=== PATIENT | female | born 1985 | race Caucasian/White ===

== ENCOUNTER 2016-08-03 19:32 | Emergency (ER) | payer MEDICAID, OTHER ==
[2016-08-03] MEDS ORDERED: Rocephin 1000 MG INJ IM ONE (20:32)
[2016-08-03] MEDS ORDERED: Zithromax 250 MG TABLET PO ONE (20:32)
[2016-08-03] MEDS ORDERED: TORAdol 30 mg Injection IM ONE (20:32)
[2016-08-03] MEDS ORDERED: PROVENTIL 2.5 MG/3 ML NEB IH ONE ×2 (20:33→20:42)
[2016-08-03] MEDS ORDERED: Robitussin AC Syrup Unit Dose Cup PO PRN (20:33)
[2016-08-03] MEDS ORDERED: TORAdol 30 mg Injection ONE (20:40)
--- NOTE | 2016-08-03 20:40 | ERPHSYRPT ---
- History of Present Illness Time Seen by Provider: 08/03/16 20:28 Source: patient Exam Limitations: no limitations Physician History: FOR THE PAST 1.5 WEEKS PT HAS HAD A COUGH PRODUCTIVE OF A SMALL AMOUNT OF GREEN- YELLOW PHLEGM; FOR THE PAST WEEK DIAPHORESIS AND CHILLS. PT DENIES CHEST PAIN, FEVER, VOMITING. Allergies/Adverse Reactions: venom-honey bee [bee venom (honey bee)] Adverse Reaction (Verified 06/08/13 21: 47) Hx Tetanus, Diphtheria Vaccination/Date Given: Yes Hx Influenza Vaccination/Date Given: No Hx Pneumococcal Vaccination/Date Given: No - Review of Systems Constitutional: Chills, No Fever Respiratory: Cough Cardiac: No Chest Pain Abdominal/Gastrointestinal: No Vomiting Endocrine: Excessive Sweating All Other Systems: Reviewed and Negative - Past Medical History Pertinent Past Medical History: Yes Neurological History: No Pertinent History ENT History: No Pertinent History Cardiac History: No Pertinent History Respiratory History: No Pertinent History Endocrine Medical History: No Pertinent History Musculoskeletal History: No Pertinent History GI Medical History: Crohns Disease History: No Pertinent History Psycho-Social History: No Pertinent History Female Reproductive Disorders: No Pertinent History - Past Surgical History Past Surgical History: Yes Neuro Surgical History: No Pertinent History Cardiac: No Pertinent History Respiratory: No Pertinent History Gastrointestinal: Colon Resection Musculoskeletal: No Pertinent History Female Surgical History: No Pertinent History, Tubal Ligation Other Surgical History: Part of intestine removed 2008 - Social History Smoking Status: Never smoker Exposure to second hand smoke: Yes Drug Use: none Patient Lives Alone: No - Female History Hx Now: No - Physical Exam General Appearance: alert Eye Exam: PERRL/EOMI Ears, Nose, Throat Exam: TMs normal, pharynx normal, moist mucous membranes Neck Exam: normal inspection Respiratory Exam: airway intact, wheezing (MILD EXPIRATORY WHEEZING BILATERALLY) , No crackles/rales Cardiovascular Exam: normal heart sounds Gastrointestinal/Abdomen Exam: soft, normal bowel sounds Back Exam: normal range of motion Extremity Exam: No pedal edema Neurologic Exam: alert, cooperative Skin Exam: dry - Course Nursing assessment & vital signs reviewed: Yes Ordered Tests: Active Orders 24 hr Category Date Time Status Respiratory Nebulizer STAT RT 08/03/16 20:33 Active Medication Summary Generic Name Dose Route Start Last Admin Trade Name Freq PRN Reason Stop Dose Admin Guaifenesin/Codeine Phosphate 10 ml 08/03/16 20:33 Robitussin Ac Syrup Unit Dose Cup PO 09/02/16 20:32 QIDP PRN COUGH Discontinued Medications Generic Name Dose Route Start Last Admin Trade Name Avinash PRN Reason Stop Dose Admin Albuterol Sulfate 2.5 mg 08/03/16 20:33 Proventil 2.5 Mg/3 Ml Neb IH 08/03/16 20:34 STAT ONE Azithromycin 500 mg 08/03/16 20:32 Zithromax 250 Mg Tablet PO 08/03/16 20:33 STAT ONE Ceftriaxone Sodium 1,000 mg 08/03/16 20:32 Rocephin 1000 Mg Inj IM 08/03/16 20:33 STAT ONE Ketorolac Tromethamine 60 mg 08/03/16 20:32 Toradol 30 Mg Injection IM 08/03/16 20:33 STAT ONE - Departure Time of Disposition: 20:40 Departure Disposition: Home Clinical Impression: BRONCHITIS Condition: Fair Critical Care Time: No Instructions: Bronchitis Additional Instructions: FOLLOW UP WITH PRIVATE DOCTOR TOMORROW. Prescriptions: Guaifenesin/Codeine Phosphate [Robitussin AC Syrup] 10 ml PO Q4HPRN PRN #120 ml PRN Reason: Cough Naproxen 375 mg [Naprosyn 375 mg] 375 mg PO [id number] PRN #20 tablet PRN Reason: Pain Azithromycin 250 mg [Zithromax 250 MG TABLET] 250 mg PO ZPACK #6 tablet
[2016-08-03] MEDS ORDERED: XYLOCAINE 1% HCL 20 ML MDV ONE (20:41)
[2016-08-03] MEDS ORDERED: Robitussin AC Syrup Unit Dose Cup ONE (20:41)
[2016-08-03] MEDS ORDERED: Zithromax 250 MG TABLET ONE (20:41)
[2016-08-03] MEDS ORDERED: Rocephin 1000 MG INJ ONE (20:41)
[2016-08-03 20:48] VITALS: PULSE 84
[2016-08-03 20:52] VITALS: O2SAT 97
[2016-08-03 21:24] VITALS: BP 128/76
== END 2016-08-03 21:24 | disposition home or self-care (01) ==
LOC: ED 19:32
DX: J40 Bronchitis, not specified as acute or chronic (principal)
CPT/HCPCS: 94640; 96372; 99283; 99284; J0696; J1885

== ENCOUNTER 2017-03-04 20:04 | Emergency (ER) | payer OTHER ==
[2017-03-04] MEDS ORDERED: TYLENOL 325 MG PO ONE (20:18)
[2017-03-04] MEDS ORDERED: KEFLEX 500 MG PO ONE (20:18)
[2017-03-04] MEDS ORDERED: Adacel Vial IM ONE ×2 (20:19→20:37)
[2017-03-04] MEDS ORDERED: BACIGUENT PACKET TP ONE (20:19)
[2017-03-04 20:28] VITALS: O2SAT 100
--- NOTE | 2017-03-04 20:30 | ERPHSYRPT ---
- History of Present Illness Time Seen by Provider: 03/04/17 20:14 Source: patient Physician History: CC: thumb injury hx: 31 y/o healthy patient of Dr Bonner smashed right thumb 2 weeks ago. The nail fell off. Now it is more sore and has some redness extending proximally so she came to ER. Unsure last tetanus vaccine. Healthy. Had prior BTL. Has been soaking in perozide. 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 Extremities Pain Location: thumb: right Allergies/Adverse Reactions: venom-honey bee [bee venom (honey bee)] Adverse Reaction (Verified 08/03/16 20: 52) Hx Tetanus, Diphtheria Vaccination/Date Given: Yes Hx Influenza Vaccination/Date Given: No Hx Pneumococcal Vaccination/Date Given: No - Review of Systems Constitutional: No Fever, No Chills Musculoskeletal: Injury (right thumb) Neurological: No Focal Weakness, No Parasthesia - Past Medical History Pertinent Past Medical History: Yes Neurological History: No Pertinent History ENT History: No Pertinent History Cardiac History: No Pertinent History Respiratory History: No Pertinent History Endocrine Medical History: No Pertinent History Musculoskeletal History: No Pertinent History GI Medical History: Crohns Disease History: No Pertinent History Psycho-Social History: No Pertinent History Female Reproductive Disorders: No Pertinent History - Past Surgical History Past Surgical History: Yes Neuro Surgical History: No Pertinent History Cardiac: No Pertinent History Respiratory: No Pertinent History Gastrointestinal: Colon Resection Musculoskeletal: No Pertinent History Female Surgical History: No Pertinent History, Tubal Ligation Other Surgical History: Part of intestine removed 2008 - Social History Smoking Status: Never smoker Exposure to second hand smoke: Yes Drug Use: none Patient Lives Alone: No - Female History Hx Now: No - Physical Exam General Appearance: alert Eyes, Ears, Nose, Throat Exam: moist mucous membranes Neck Exam: supple Cardiovascular/Respiratory Exam: regular rate/rhythm Elbow/Forearm Exam: normal inspection, non-tender Wrist Exam: normal inspection, non-tender Hand Exam: nail injury (fell off, some redness and swelling at the proximal nail fold. Minimal thumb redness and swelling. Good cap refill. ) Neuro/Tendon Exam: normal sensation, normal motor functions Mental Status Exam: alert, oriented x 3, cooperative Skin Exam: warm, dry - Course Nursing assessment & vital signs reviewed: Yes - Radiology Exams right thumb/hand X-ray Interpretation: Reviewed by me, No Fracture Ordered Tests: Active Orders 24 hr Category Date Time Status Wound Care STAT Care 03/04/17 20:19 Active HAND (MINIMUM 3 VIEWS) Stat Exams 03/04/17 20:18 Ordered Medication Summary Discontinued Medications Generic Name Dose Route Start Last Admin Trade Name Freq PRN Reason Stop Dose Admin Acetaminophen 650 mg 03/04/17 20:18 Tylenol 325 Mg PO 03/04/17 20:19 STAT ONE Bacitracin 0.9 gm 03/04/17 20:19 Baciguent Packet TP 03/04/17 20:20 STAT ONE Cephalexin HCl 500 mg 03/04/17 20:18 Keflex 500 Mg PO 03/04/17 20:19 STAT ONE Diphtheria/Tetanus/Acell Pertussis 0.5 ml 03/04/17 20:19 Adacel Vial IM 03/04/17 20:20 .ONCE ONE - Departure Time of Disposition: 20:30 Departure Disposition: Home Clinical Impression: Cellulitis of right thumb Contusion of right thumb Qualifiers: Encounter type: initial encounter Damage to nail status: with damage Qualified Code(s): S60.111A - Contusion of right thumb with damage to nail, initial encounter Condition: Stable Critical Care Time: No Referrals: DAVION WATSON [Primary Care Provider] - Instructions: Contusion Additional Instructions: Epson salt soaks twice a day. Elevate. Rx keflex. Rx ibuprofen 600mg every 6 hours for pain. Follow up next week with dr Bonner/Leti. Prescriptions: Ibuprofen 600 mg PO Q6H PRN PRN #24 tablet PRN Reason: Pain Cephalexin Mh 500 mg [Keflex 500 mg] 1 cap PO QID #40 capsule
[2017-03-04] MEDS ORDERED: KEFLEX 500 MG ONE (20:36)
[2017-03-04] MEDS ORDERED: BACIGUENT PACKET ONE (20:36)
[2017-03-04] MEDS ORDERED: TYLENOL 325 MG ONE (20:36)
[2017-03-04 20:50] VITALS: BP 152/83; PULSE 68
--- NOTE | 2017-03-04 21:56 | XRAY ---
Indication: Thumb pain following injury 2 weeks ago. Comparison: None 3 views of the right hand demonstrates normal bones, articulation, and soft tissues.
== END 2017-03-04 21:03 | disposition home or self-care (01) ==
LOC: ED 20:04
DX: S60.111A Contusion of right thumb with damage to nail, initial encounter (principal); L03.011 Cellulitis of right finger
CPT/HCPCS: 73130; 90471; 90715; 99283; 99284; A9270-GY

== ENCOUNTER 2017-06-11 18:12 | Emergency (ER) | payer OTHER ==
--- NOTE | 2017-06-11 18:45 | ERPHSYRPT ---
- History of Present Illness Source: patient Exam Limitations: no limitations Patient Subjective Stated Complaint: pt reports fever since 06/09/17 evening. complains of chills fatigue and decreased appetite. Triage Nursing Assessment: pt is aox3, pupils perrl, resps easy and non labored , radial pulses strong and equal, skin is pink warm dry. Timing/Duration: day(s) (3) Fever Severity: moderate Fever Therapy [employer] F[employer]ORER: Acetaminophen Associated Symptoms: cough, muscle aches, sore throat Hx Tetanus, Diphtheria Vaccination/Date Given: Yes Hx Influenza Vaccination/Date Given: No Hx Pneumococcal Vaccination/Date Given: No Immunizations Up to Date: Yes <MARK ANTHONY MURPHY - Last Filed: 06/11/17 18:35> <SOREN ISRAEL - Last Filed: 06/11/17 20:35> - History of Present Illness Time Seen by Provider: 06/11/17 18:35 Physician History: The patient is a 31-year-old female complaining of a cough, fever of up to 102, sore throat, muscle aches, and nausea for 3 days. She has not received an influenza vaccination for the last 4 years. She has been taking Tylenol to help with the fever and aches. Others in her family have also been sick. Her past medical history is significant for Crohn's disease. (MARK ANTHONY MURPHY) Allergies/Adverse Reactions: venom-honey bee [bee venom (honey bee)] Adverse Reaction (Verified 06/11/17 18: 24) - Review of Systems Constitutional: Fever Eyes: No Symptoms Ears, Nose, & Throat: Throat Pain Respiratory: Cough Cardiac: No Chest Pain, No Edema, No Syncope Abdominal/Gastrointestinal: No Abdominal Pain, No Nausea, No Vomiting, No Diarrhea Genitourinary Symptoms: No Dysuria Musculoskeletal: Myalgias Skin: No Rash Neurological: No Dizziness, No Focal Weakness, No Sensory Changes Psychological: No Symptoms Endocrine: No Symptoms Hematologic/Lymphatic: No Symptoms Immunological/Allergic: No Symptoms All Other Systems: Reviewed and Negative <MARK ANTHONY MURPHY - Last Filed: 06/11/17 18:35> - Past Medical History Pertinent Past Medical History: Yes Neurological History: No Pertinent History ENT History: No Pertinent History Cardiac History: No Pertinent History Respiratory History: No Pertinent History Endocrine Medical History: No Pertinent History Musculoskeletal History: No Pertinent History GI Medical History: Crohns Disease History: No Pertinent History Psycho-Social History: No Pertinent History Female Reproductive Disorders: No Pertinent History - Past Surgical History Past Surgical History: Yes Neuro Surgical History: No Pertinent History Cardiac: No Pertinent History Respiratory: No Pertinent History Gastrointestinal: Colon Resection Genitourinary: No Pertinent History Musculoskeletal: No Pertinent History Female Surgical History: No Pertinent History, Tubal Ligation Other Surgical History: Part of intestine removed 2008 - Social History Smoking Status: Never smoker Exposure to second hand smoke: Yes Drug Use: none Patient Lives Alone: No - Female History Hx Last Menstrual Period: 06/08/17 Hx Now: No <MARK ANTHONY MURPHY - Last Filed: 06/11/17 18:35> - Physical Exam General Appearance: no apparent distress, alert Eye Exam: PERRL/EOMI ENT Exam: normal ENT inspection, No pharyngeal erythema, No tonsillar exudate Neck Exam: supple, full range of motion, No meningismus Respiratory Exam: rhonchi, wheezing Cardiovascular/Chest Exam: normal heart sounds, tachycardia Gastrointestinal/Abdominal Exam: soft, non tender, no distention Pelvic Exam: not done Rectal Exam: not done Extremity Exam: non-tender, normal range of motion, normal inspection, normal capillary refill Neurologic Exam: alert, oriented x 3, cooperative, 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, normal mood/affect, sensation nml, No motor deficits Skin Exam: normal color, warm, dry, No rash SpO2 Interpretation: normal SpO2: 98 Oxygen Delivery: Room Air <MARK ANTHONY MURPHY - Last Filed: 06/11/17 18:35> - Nursing Vital Signs Nursing Vital Signs: Initial Vital Signs Temperature 99.7 F 06/11/17 18:17 Pulse Rate 120 H 06/11/17 18:17 Respiratory Rate 20 06/11/17 18:17 Blood Pressure 114/48 06/11/17 18:17 O2 Sat by Pulse Oximetry 98 06/11/17 18:17 Pain Scale Pain Intensity 0 - Course Nursing assessment & vital signs reviewed: Yes <SOREN ISRAEL - Last Filed: 06/11/17 20:35> Ordered Tests: Active Orders 24 hr Category Date Time Status IV Insertion STAT Care 06/11/17 18:49 Active Pulse Oximetry (ED) STAT Care 06/11/17 18:49 Active CHEST 2 VIEWS (PA AND LAT) Stat Exams 06/11/17 18:49 Completed CBC W DIFF Stat Lab 06/11/17 19:12 Completed CMP Stat Lab 06/11/17 19:12 Completed CULTURE, THROAT Stat Lab 06/11/17 19:12 Received Lactic Acid Stat Lab 06/11/17 18:50 Completed Manual Differential NC Stat Lab 06/11/17 19:12 Completed STREP SCREEN-BETA A Stat Lab 06/11/17 19:12 Completed Respiratory Nebulizer STAT RT 06/11/17 18:52 Completed Medication Summary Discontinued Medications Generic Name Dose Route Start Last Admin Trade Name Freq PRN Reason Stop Dose Admin Acetaminophen 975 mg 06/11/17 18:50 06/11/17 19:21 Tylenol 325 Mg PO 06/11/17 18:51 975 mg STAT ONE Administration Acetaminophen Confirm 06/11/17 19:13 Tylenol 325 Mg Administered 06/11/17 19:14 Dose 975 mg .ROUTE .STK-MED ONE Albuterol/Ipratropium 3 ml 06/11/17 18:52 06/11/17 19:37 Duoneb 0.5-3 Mg/3 Ml Neb IH 06/11/17 18:53 3 ml STAT ONE Administration Albuterol/Ipratropium Confirm 06/11/17 19:36 Duoneb 0.5-3 Mg/3 Ml Neb Administered 06/11/17 19:37 Dose 3 ml IH .STK-MED ONE Sodium Chloride 1,000 mls @ 999 mls/hr 06/11/17 18:50 06/11/17 19:20 Sodium Chloride 0.9% 1000 Ml IV 06/11/17 19:50 999 mls/hr .Q1H1M STA Administration Sodium Chloride Confirm 06/11/17 19:13 Sodium Chloride 0.9% 1000 Ml Administered 06/11/17 19:14 Dose 1,000 mls @ ud .ROUTE .STK-MED ONE Potassium Chloride 40 meq 06/11/17 20:02 06/11/17 20:14 Klor Con 10 Meq PO 06/11/17 20:03 40 meq STAT ONE Administration Potassium Chloride Confirm 06/11/17 20:13 Klor Con 10 Meq Administered 06/11/17 20:14 Dose 40 meq PO .STK-MED ONE Lab/Rad Data: Laboratory Result Diagrams 06/11/17 19:12 06/11/17 19:12 Laboratory Results 06/11/17 06/11/17 06/11/17 Range/Units 19:12 19:12 19:12 WBC 5.0 (4.0-10.5) K/mm3 RBC 4.06 L (4.1-5.4) M/mm3 Hgb 11.6 L (12.0-16.0) gm/dl Hct 36.2 (35-47) % MCV 89.2 (78-100) fl MCH 28.5 (26-32) pg MCHC 32.0 (32-36) g/dl RDW 15.2 H (11.5-14.0) % Plt Count 167 (150-450) K/mm3 MPV 11.1 H (6-9.5) fl Segmented Neutrophils 67 H (36.0-66.0) % Band Neutrophils 14 H (0.0-2.0) % Lymphocytes (Manual) 8 L (24-44) % Monocytes (Manual) 10 (0.0-12.0) % Differential Comment NORMAL Atypical Lymphocytes 1 % Platelet Estimate NORMAL (NORMAL) Sodium 135 L (136-145) mEq/L Potassium 3.3 L (3.5-5.1) mEq/L Chloride 98 (98-107) mEq/L Carbon Dioxide 26.6 (21-32) mEq/L Anion Gap 13.4 (5-15) MEQ/L BUN 9 (9-20) mg/dL Creatinine 0.94 (0.55-1.30) mg/dl Estimated GFR > 60 ML/MIN Glucose 101 (70-110) MG/DL Lactic Acid (0.4-2.0) Calcium 8.3 L (8.5-10.1) mg/dL Total Bilirubin 0.20 (0.2-1.0) mg/dL AST 22 (15-37) U/L ALT 17 (12-78) U/L Alkaline Phosphatase 69 (46-116) U/L Serum Total Protein 7.8 (6.4-8.2) gm/dL Albumin 3.9 (3.4-5.0) g/dL Influenza Type A Ag (NEGATIVE) Influenza Type B Ag (NEGATIVE) RSV (PCR) (Negative) Streptococcus Screen NEGATIVE (Negative) 06/11/17 06/11/17 Range/Units 19:04 18:50 WBC (4.0-10.5) K/mm3 RBC (4.1-5.4) M/mm3 Hgb (12.0-16.0) gm/dl Hct (35-47) % MCV (78-100) fl MCH (26-32) pg MCHC (32-36) g/dl RDW (11.5-14.0) % Plt Count (150-450) K/mm3 MPV (6-9.5) fl Segmented Neutrophils (36.0-66.0) % Band Neutrophils (0.0-2.0) % Lymphocytes (Manual) (24-44) % Monocytes (Manual) (0.0-12.0) % Differential Comment Atypical Lymphocytes % Platelet Estimate (NORMAL) Sodium (136-145) mEq/L Potassium (3.5-5.1) mEq/L Chloride (98-107) mEq/L Carbon Dioxide (21-32) mEq/L Anion Gap (5-15) MEQ/L BUN (9-20) mg/dL Creatinine (0.55-1.30) mg/dl Estimated GFR ML/MIN Glucose (70-110) MG/DL Lactic Acid 1.0 (0.4-2.0) Calcium (8.5-10.1) mg/dL Total Bilirubin (0.2-1.0) mg/dL AST (15-37) U/L ALT (12-78) U/L Alkaline Phosphatase (46-116) U/L Serum Total Protein (6.4-8.2) gm/dL Albumin (3.4-5.0) g/dL Influenza Type A Ag POSITIVE (NEGATIVE) Influenza Type B Ag NEGATIVE (NEGATIVE) RSV (PCR) NEGATIVE (Negative) Streptococcus Screen (Negative) <MARK ANTHONY MURPHY - Last Filed: 06/11/17 18:35> - Progress Progress: improved <SOREN ISRAEL - Last Filed: 06/11/17 20:35> - Progress Progress Note: 06/11/17 18:48 Pt care discussed and care transferred to Dr Israel at 19:00. (MARK ANTHONY MURPHY) 06/11/17 20:33 Pt feels better after receiving NS fluids. Potassium is 3.2 which was replaced. Influenza A is positive and the patient will be treated with 5 days of tamiflu. (SOREN ISRAEL) <MARK ANTHONY MURPHY - Last Filed: 06/11/17 18:35> - Departure Time of Disposition: 20:33 Departure Disposition: Home Critical Care Time: No <SOREN ISRAEL - Last Filed: 06/11/17 20:35> - Departure Clinical Impression: Influenza A Condition: Stable Referrals: DAVION WATSON [Primary Care Provider] - Instructions: Influenza -- Adult Additional Instructions: Follow up with your primary care doctor if you should have worsening fever, chills, weakness, cough or shortness of breath. Finish the Tamiflu until completion. Prescriptions: Oseltamivir Phosphate [Tamiflu] 75 mg PO BID #9 capsule
[2017-06-11] MEDS ORDERED: Sodium Chloride 0.9% 1000 ML 1,000 ML IV STA (18:50)
[2017-06-11] MEDS ORDERED: TYLENOL 325 MG PO ONE (18:50)
[2017-06-11] MEDS ORDERED: DUONEB 0.5-3 MG/3 ml Neb IH ONE ×2 (18:52→19:36)
[2017-06-11] MEDS ORDERED: Sodium Chloride 0.9% 1000 ML 1,000 ML ONE (19:13)
[2017-06-11] MEDS ORDERED: TYLENOL 325 MG ONE (19:13)
[2017-06-11 19:15] LABS: Mean Cell Volume 89.2 fl (78-100); Mean Platelet Volume 11.1 fl (6-9.5); Platelet Count 167 K/mm3 (150-450); Red Blood Count 4.06 M/mm3 (4.1-5.4); Red Cell Distribution Width 15.2 % (11.5-14.0)
[2017-06-11 19:23] LABS: Mean Corpuscular Hemoglobin 28.5 pg (26-32)
[2017-06-11 19:35] LABS: ALBUMIN 3.9 g/dL (3.4-5.0); ALKALINE PHOSPHATASE 69 U/L (46-116); ANION GAP 13.4 MEQ/L (5-15); BLOOD UREA NITROGEN 9 mg/dL (9-20); CHLORIDE 98 mEq/L (98-107); Carbon Dioxide 26.6 mEq/L (21-32); Glucose 101 MG/DL (70-110); Potassium 3.3 mEq/L (3.5-5.1); SGOT/AST 22 U/L (15-37); SGPT/ALT 17 U/L (12-78); SODIUM 135 mEq/L (136-145); Total Protein 7.8 gm/dL (6.4-8.2)
[2017-06-11 19:50] LABS: ATYPICAL LYMPHS 1 %; BAND 14 % (0.0-2.0); Platelet Estimate NORMAL (NORMAL); Total Cells Counted 100
[2017-06-11] MEDS ORDERED: Klor Con 10 MEQ PO ONE ×2 (20:02→20:13)
--- NOTE | 2017-06-11 20:25 | XRAY ---
Indication: Fever and cough. Comparison: None PA/lateral chest demonstrates normal heart and lungs. Bony thorax intact with minimal dextroscoliosis.
[2017-06-11] MEDS ORDERED: Tamiflu 75MG Capsule PO ONE ×2 (20:32→20:52)
[2017-06-11 20:49] VITALS: O2SAT 96
[2017-06-11 20:56] VITALS: BP 102/54; PULSE 112
== END 2017-06-11 21:21 | disposition home or self-care (01) ==
LOC: ED 18:12
DX: J11.1 Influenza due to unidentified influenza virus with other respiratory manifestations (principal)
CPT/HCPCS: 36000; 36415; 71020; 80053; 83605; 85025; 87070; 87430; 87631; 94640; 96360; 99284; A9270-GY